=== PATIENT | female | born 1980 | race Caucasian/White ===

== ENCOUNTER 2022-11-21 08:32 | Outpatient (CLI) | payer OTHER, SELFPAY | END 2022-11-21 08:33 | disposition home or self-care (01) | LOC: NFLDREF 11-29 03:25 | PROVIDERS: PCP Family Medicine; Referring Provider Family Medicine; Visit Provider Emergency Medicine | DX: Z86.2 Personal history of diseases of the blood and blood-forming organs and certain disorders involving the immune mechanism (principal); Z13.6 Encounter for screening for cardiovascular disorders | CPT/HCPCS: 80048; 80061; 82728 ==

== ENCOUNTER 2022-12-02 13:26 | Outpatient (CLI) | payer OTHER, SELFPAY | END 2022-12-02 13:27 | disposition home or self-care (01) | PROVIDERS: PCP Family Medicine; Visit Provider Emergency Medicine | DX: Z00.00 Encounter for general adult medical examination without abnormal findings (principal); R53.83 Other fatigue; E04.1 Nontoxic single thyroid nodule; R10.9 Unspecified abdominal pain; R19.7 Diarrhea, unspecified | CPT/HCPCS: 84443 ==

== ENCOUNTER 2022-12-03 13:45 | Outpatient (CLI) | payer OTHER, SELFPAY | END 2022-12-03 13:46 | disposition home or self-care (01) | LOC: NFLDREF 12-05 12:48 | PROVIDERS: PCP Family Medicine; Referring Provider Family Medicine; Visit Provider Emergency Medicine | DX: Z00.00 Encounter for general adult medical examination without abnormal findings (principal); R53.83 Other fatigue; F41.9 Anxiety disorder, unspecified; R79.0 Abnormal level of blood mineral; R10.9 Unspecified abdominal pain; R19.7 Diarrhea, unspecified | CPT/HCPCS: 80076; 83516 ==

== ENCOUNTER 2022-12-09 17:54 | Outpatient (CLI) | payer OTHER, SELFPAY | END 2022-12-09 17:55 | disposition home or self-care (01) | LOC: LKVREF 17:55 | PROVIDERS: PCP Family Medicine; Visit Provider Emergency Medicine | DX: R10.9 Unspecified abdominal pain (principal); R53.83 Other fatigue; R19.7 Diarrhea, unspecified; D64.9 Anemia, unspecified; R79.0 Abnormal level of blood mineral | CPT/HCPCS: 83690 ==

== ENCOUNTER 2022-12-10 09:37 | Outpatient (CLI) | payer OTHER, SELFPAY | END 2022-12-10 09:38 | disposition home or self-care (01) | LOC: NFLDREF 12-12 04:37 | PROVIDERS: PCP Family Medicine; Referring Provider Family Medicine; Visit Provider Family Medicine | DX: R10.9 Unspecified abdominal pain (principal); R19.7 Diarrhea, unspecified | CPT/HCPCS: 87338 ==

== ENCOUNTER 2022-12-12 09:01 | Outpatient (CLI) | payer OTHER, SELFPAY ==
--- NOTE | 2022-12-12 09:15 | CRLHL7_ITS ---
For Patients: As a result of the Century Cures Act, medical imaging exams and procedure reports are released immediately into your electronic medical record. You may view this report before your referring provider. If you have questions, please contact your health care provider. INDICATION: Epigastric pain after eating, nausea COMPARISON: none TECHNIQUE: Real time healy scale imaging and color Doppler analysis was performed of the right upper quadrant. FINDINGS: The patient`s liver is of normal size and has uniform echogenicity. There is a normal appearance of the hepatic IVC and proximal abdominal aorta. There is no evidence of ascites. The gallbladder is of normal size and there is no evidence of intraluminal stones or sludge. The gallbladder wall measures 3 mm in thickness. The common bile duct is of normal size and measures 2 mm in diameter at the level of the shea hepatis. The pancreas appears normal. There is no evidence of a stone or hydronephrosis within the right kidney. The right kidney measures 11.6 cm in length. IMPRESSION: Normal right upper quadrant ultrasound. Dictated by Eliseo Torrez MD @ 12/12/2022 9:51:45 AM (Electronically Signed)
== END 2022-12-12 09:02 | disposition home or self-care (01) ==
LOC: US 09:02
PROVIDERS: PCP Emergency Medicine; Visit Provider Emergency Medicine
DX: R10.13 Epigastric pain (principal)
CPT/HCPCS: 76705

== ENCOUNTER 2023-03-02 13:02 | Outpatient (CLI) | payer BC, SELFPAY ==
--- NOTE | 2023-03-02 14:37 | W.ANESCHARGE ---
Anesthesia Charges Start Date/Time Anesthesia Start Date: 03/02/23 Anesthesia Start Time: 14:50 Stop Date/Time Anesthesia Stop Date: 03/02/23 Anesthesia Stop Time: 15:20
--- NOTE | 2023-03-02 15:23 | W.ANESCHARGE ---
Anesthesia Charges Start Date/Time Anesthesia Start Date: 03/02/23 Anesthesia Start Time: 14:50 Stop Date/Time Anesthesia Stop Date: 03/02/23 Anesthesia Stop Time: 15:20
== END 2023-03-02 13:03 | disposition home or self-care (01) ==
LOC: OP CLINIC 13:04
PROVIDERS: PCP Emergency Medicine; Visit Provider Surgery
DX: R19.5 Other fecal abnormalities (principal); K62.89 Other specified diseases of anus and rectum
CPT/HCPCS: 45380; 811; 812; 88305; J2704